=== PATIENT | female | born 1990 | race Two or more races ===

== ENCOUNTER → 2017-12-03 | Emergency (ER) | payer OTHER ==
[~2017-12-03] VITALS: Ht 154.9 cm; Wt 63.5 kg
[~2017-12-03] MED LIST: ATABEX DHA CAP1 EACH PO
== END | disposition home or self-care (01) ==
LOC: ER 15:34
DX: B34.9 Viral infection, unspecified (principal)

== ENCOUNTER 2018-04-15 16:20 | Emergency (ER) | payer OTHER ==
[~2018-04-15] VITALS: Ht 154.9 cm; Wt 67.1 kg
== END 2018-04-15 21:30 | disposition home or self-care (01) ==
LOC: ER 16:20
DX: K52.89 Other specified noninfective gastroenteritis and colitis (principal)

== ENCOUNTER 2018-07-04 14:16 | Emergency (ER) | payer OTHER ==
[~2018-07-04] VITALS: Ht 154.9 cm; Wt 68.0 kg
== END 2018-07-04 19:14 | disposition home or self-care (01) ==
LOC: ER 14:16
DX: M94.0 Chondrocostal junction syndrome [Tietze] (principal); F06.4 Anxiety disorder due to known physiological condition